=== PATIENT | female | born 1995 | race Caucasian/White ===

== ENCOUNTER 2021-08-11 20:39 | Emergency (ER) | payer MEDICAID ==
[~2021-08-11] VITALS: Ht 152.4 cm; Wt 101.4 kg
[2021-08-11 21:04] VITALS: TEMP 99.3
[2021-08-11 21:30] LABS: BASO # 0.1 (0.0-0.2); BASO % 0.6 % (0.0-2.0); EOS # 0.1 (0.0-0.7); EOS % 0.8 % (0-4.0); GRAN # 7.1 (1.4-6.5); GRAN % 67.6 % (42.2-75.2); HEMATOCRIT 39.7 % (37.0-47.0); LYMPH # 2.7 (1.2-3.4); LYMPH % 25.7 % (20.0-51.0); MEAN CELL VOLUME 87 fl (80.0-100.0); MEAN CORPUSCULAR HEMOGLOBIN 28 pg (27.0-31.0); MEAN CORPUSCULAR HGB CONC 33 g/dl (33.0-37.0); MEAN PLATELET VOLUME 10.3 fl (7.4-10.4); MONO # 0.5 (0.1-0.6); MONO % 4.9 % (1.7-9.3); PLATELET COUNT 346 K/mm3 (130-400); RED BLOOD COUNT 4.58 M/mm3 (4.10-5.30)
[2021-08-11 21:53] LABS: ALBUMIN 3.7 gm/dL (3.5-5.0); BILIRUBIN,TOTAL 0.1 mg/dL (0.2-1.2); CREATININE, serum 0.95 mg/dL (0.57-1.11); POTASSIUM 3.8 mmol/L (3.5-4.5); TOTAL PROTEIN 7.7 gm/dL (6.2-8.1)
[2021-08-12 01:09] LABS: COLLECTION METHOD CLEAN CATCH
[2021-08-12 01:16] LABS: PH 6 (5-8); SQUAMOUS EPITHELIAL 0-2 /hpf; URINE APPEARANCE Clear; URINE BACTERIA None Seen /hpf; URINE BILIRUBIN Negative (NEGATIVE); URINE BLOOD Negative (NEGATIVE); URINE COLOR Colorless; URINE GLUCOSE Negative (NEGATIVE); URINE KETONE Negative (NEGATIVE); URINE LEUKOCYTE ESTERASE Negative (NEGATIVE); URINE NITRATE Negative (NEGATIVE); URINE PROTEIN(semi-quant) Negative (NEGATIVE); URINE RBC None Seen /hpf; URINE UROBILINOGEN Negative (NEGATIVE); URINE WBC 0-2 /hpf
[2021-08-12] MEDS ORDERED: ZOFRAN ODT4 MG PO (01:28)
[2021-08-12] MEDS ORDERED: PEPCID 20MG TAB20 MG PO (01:28)
[2021-08-12] MEDS ORDERED: AMOXICILLIN 8751 TAB PO (10:54)
[2021-08-12] MEDS ORDERED: PRILOSEC 20MG20 MG PO (10:54)
[2021-08-12 11:16] VITALS: BP 110/76; PULSE 56
== END 2021-08-12 11:16 | disposition home or self-care (01) ==
LOC: COL.ER 20:39
PROVIDERS: Emergency Medicine
DX: R10.13 Epigastric pain (principal); R11.2 Nausea with vomiting, unspecified; R10.11 Right upper quadrant pain
CPT/HCPCS: J1885; J2405; J2543; J7030; J7120; Q9967

== ENCOUNTER 2021-08-15 19:50 | Emergency (ER) | payer MEDICAID ==
[~2021-08-15] VITALS: Ht 152.4 cm; Wt 96.8 kg
[~2021-08-15 19:50] MED LIST: AMOXICILLIN 8751 TAB PO; PEPCID 20MG TAB20 MG PO; PRILOSEC 20MG20 MG PO; ZOFRAN ODT4 MG PO
[2021-08-15 21:05] LABS: BASO # 0.1 K/mm3 (0.0-0.2); BASO % 0.7 % (0.0-2.0); EOS # 0.2 K/mm3 (0.0-0.7); EOS % 2.1 % (0-4.0); GRAN # 5.5 K/mm3 (1.4-6.5); GRAN % 53.4 % (42.2-75.2); HEMATOCRIT 43.2 % (37.0-47.0); HEMOGLOBIN 13.6 g/dl (12.5-16.0); LYMPH # 3.8 K/mm3 (1.2-3.4); LYMPH % 37.1 % (20.0-51.0); MEAN CELL VOLUME 90 fl (80.0-100.0); MEAN CORPUSCULAR HEMOGLOBIN 28 pg (27.0-31.0); MEAN CORPUSCULAR HGB CONC 32 g/dl (33.0-37.0); MEAN PLATELET VOLUME 10.4 fl (7.4-10.4); MONO # 0.7 K/mm3 (0.1-0.6); MONO % 6.4 % (1.7-9.3); PLATELET COUNT 337 K/mm3 (130-400); RED BLOOD COUNT 4.81 M/mm3 (4.10-5.30); REDCELL DISTRIBUTION WIDTH-CV 13.1 % (11.5-14.5)
[2021-08-15 21:16] LABS: COLLECTION METHOD CLEAN CATCH
[2021-08-15 21:20] LABS: ALBUMIN 3.9 gm/dL (3.5-5.0); BILIRUBIN,TOTAL 0.2 mg/dL (0.2-1.2); CALCIUM 9.5 mg/dL (8.4-10.2); CREATININE, serum 1.08 mg/dL (0.57-1.11); POTASSIUM 4.2 mmol/L (3.5-4.5); TOTAL PROTEIN 8.3 gm/dL (6.2-8.1)
[2021-08-15 21:22] LABS: MUCOUS Present /lpf; PH 6 (5-8); SQUAMOUS EPITHELIAL 0-2 /hpf; URINE APPEARANCE Clear; URINE BACTERIA None Seen /hpf; URINE BILIRUBIN Negative (NEGATIVE); URINE BLOOD 1+ (NEGATIVE); URINE COLOR Yellow; URINE GLUCOSE Negative (NEGATIVE); URINE KETONE Negative (NEGATIVE); URINE LEUKOCYTE ESTERASE Negative (NEGATIVE); URINE NITRATE Negative (NEGATIVE); URINE PROTEIN(semi-quant) Negative (NEGATIVE); URINE UROBILINOGEN Negative (NEGATIVE)
[2021-08-15 22:20] VITALS: BP 121/78; PULSE 85; TEMP 97.4
== END 2021-08-15 22:25 | disposition home or self-care (01) ==
LOC: COL.ER 19:50
PROVIDERS: Emergency Medicine Emergency Medical Services
DX: R10.13 Epigastric pain (principal); Z32.02 Encounter for pregnancy test, result negative
CPT/HCPCS: J1885; J2405

== ENCOUNTER 2023-02-28 06:40 | Inpatient (IN) | payer MEDICAID ==
[~2023-02-28] VITALS: Ht 152.4 cm; Wt 95.9 kg
[2023-02-28] VITALS (11 sets, daily range): BP systolic 112–142; BP diastolic 60–83; PULSE 67–110; TEMP 97.6–98.2
--- NOTE | 2023-02-28 06:55 | NUR ---
PT AMBULATORY TO LR3 WITH FOB. CHANGED INTO CLEAN GOWN. FHR MONITOR/TOCO APPLIED. PT REPORTING CONTRACTIONS AND LIGHT VAGINAL BLEEDING. PT DENIES DECREASED MOVEMENT OR LEAKING OF FLUID. SVE AT THIS TIME /-2.
--- NOTE | 2023-02-28 07:10 | NUR ---
DR WEAVER ON UNIT. THIS NURSE GIVES HIM VERBAL REPORT. DR WEAVER GIVES ADMISSION ORDERS.
[2023-02-28] MEDS ORDERED: PRENATAL (07:12)
[2023-02-28] MEDS ORDERED: WELLBUTRIN XL150 MG PO (07:13)
[2023-02-28] MEDS ORDERED: PRISTIQ 50 MG T50 MG PO (07:14)
--- NOTE | 2023-02-28 08:00 | NUR ---
Zoey FERNANDEZ POWDER PRESS OPERATOR CALLED FOR EPIDURAL REQUESTS Cristian SALGUERO POWDER PRESS OPERATOR WHO IS IN HOUSE DO EPIDURAL.
[2023-02-28 08:03] LABS: BASO # 0.1 K/mm3 (0.0-0.2); BASO % 0.3 % (0.0-2.0); EOS # 0.1 K/mm3 (0.0-0.7); EOS % 0.5 % (0.0-4.0); GRAN # 12.7 K/mm3 (1.4-6.5); GRAN % 75.6 % (42.2-75.2); LYMPH # 2.8 K/mm3 (1.2-3.4); LYMPH % 16.4 % (20.0-51.0); MEAN CELL VOLUME 75 fl (80.0-100.0); MEAN CORPUSCULAR HEMOGLOBIN 23 pg (27-31); MEAN CORPUSCULAR HGB CONC 31 g/dl (33.0-37.0); MEAN PLATELET VOLUME 10.8 fl (7.4-10.4); MONO % 6.1 % (1.7-9.3); PLATELET COUNT 380 K/mm3 (130-400); RED BLOOD COUNT 4.32 M/mm3 (4.10-5.30); REDCELL DISTRIBUTION WIDTH-CV 16.9 % (11.5-14.5)
[2023-02-28 08:07] LABS: HEMATOCRIT 32.3 % (37.0-47.0)
--- NOTE | 2023-02-28 08:50 | NUR ---
0829- DEEPAK AMOS CALLED A SECOND TIME FOR EPIDURAL PLACEMENT. BETTE "MERARI WILL BE QUICKEST THERE" BETTE NOTIFIED TOD IS STILL IN OPERATING ROOM. 0850- BETTE IN PATIENTS ROOM FOR EPIDURAL PLACEMENT. PATIENT VERY UNCOMFORTABLE AT THIS TIME AND INVOLUNTARILY PUSHING. 0853- SINGLE SHOT ADMINISTERED AT THIS TIME.
--- NOTE | 2023-02-28 09:15 | NUR ---
0845- SVE BY JUSTIN CHARGE NURSE 9. YUE REPORTS FEELING LIKE SHE NEEDS TO PUSH. PATIENT OBSERVED INVOLUNTARILY PUSHING AT THIS TIME. 0853- SINGLE SHOT BY BETTE AT THIS TIME. 0855- PATIENT ASSISTED TO LAY DOWN AND AT BEDSIDE FOR DELIVERY. IV ACCESS PULLED OUT BY PATIENT. NEW IV SITE OBTAINED BY JUSTIN. 0857- SPONTANEOUS DELIVERY OF HEAD AND BODY. 0905- PITOCIN STARTED ORDERED AND PER PROTOCOL AT REQUEST OF . 0908- SPONTANEOUS DELIVERY OF PLACENTA. 0918- CYTOTEC PLACED RECTALLY BY AT THIS TIME.
--- NOTE | 2023-02-28 12:15 | NUR ---
1200- PATIENT ASSISTED INTO WHEEL CHAIR TO GO SEE IN NURSERY. PATIENT ASSISTED TO EGE OF BED AND THEN STANDS AND PIVOTS INTO WHEELCHAIR. 1215- PATIENT LEAVES NURSERY IN WHEELCHAIR WITH SPOUSE TO GO TO ROOM. UPON ATTEMPTING TO STAND, PATIENT REPORTS FEELING DIZZY, PATIENT SITS FOR AN ADITIONAL MINUTE AND THEN STANDS AND LAYS IN BED. PATIENT REQUESTING PAIN MEDICATION, PAIN MEDICATION GIVEN SEE eMAR. PATIENT ALSO REQUESTING A HEATING PACK AT THIS TIME.
--- NOTE | 2023-02-28 15:15 | NUR ---
Called to bedside by TAMI Orellana for pt bleeding. Pt ice pack pad covered and small spot of blood noted on back of pt gown and bed pad. Pt assisted to bathroom, unable to void. Fundus firm at umbilicus with left shift. Panties, pad, and gown changed, new bed pad placed. Pt assisted back to bed. Pt states cramping is bad, "feels like contractions when I came in". Rates pain 7-9/10.
--- NOTE | 2023-02-28 15:45 | NUR ---
1530 - VS done. 1545 - Dr. Aj on unit for delivery, notified of pt concerns, will discuss following delivery. 1610 - Dr. Aj informed of pt cramping pain, uterine shift, and bleeding.
--- NOTE | 2023-02-28 16:20 | NUR ---
Dr. Aj to bedside, evaluates pt and pain control. Bleeding WNL, orders for IV toradol entered.
[2023-03-01] VITALS (13 sets, daily range): BP systolic 102–138; BP diastolic 56–87; PULSE 76–107; TEMP 97.3–98.5
[2023-03-01 07:14] LABS: HEMATOCRIT 19.8 % (37.0-47.0); HEMOGLOBIN 6.2 g/dl (12.5-16.0)
--- NOTE | 2023-03-01 07:20 | NUR ---
Note critical Hgb 6.2. Patient denies any lightheadedness, dizziness, nausea. Denies shortness of breath. Steady gait noted up to BR. Lochia WNL. Fundus firm @ U after patient empties her bladder. Vitals WNL. Encouarged to let this technical publications writer know if she begins to feel any of above symptoms.
--- NOTE | 2023-03-01 10:54 | NUR ---
Patient verbalizes being nauseated and lighteaded, very fatigued.
--- NOTE | 2023-03-01 10:58 | NUR ---
Initial visit attempt; Family resting, Costumed Character Entertainer left card offering congratulations and God's Blessings for the of their daughter and information regarding the availability of Spiritual Care at our hospital.
--- NOTE | 2023-03-01 12:02 | NUR ---
Patien states she is feeling much better. Denies nausea/lightheadedness/dizziness. Note patient ate lunch, regular diet.
[2023-03-01 17:50] LABS: HEMATOCRIT 25.7 % (37.0-47.0); HEMOGLOBIN 8.1 g/dl (12.5-16.0)
--- NOTE | 2023-03-02 08:00 | NUR ---
Rests in bed, alert. Let patient know that blood sugar on baby is 87. Encouraged patient to feed baby. Patient asked for a bottle too feed after.
[2023-03-02 08:59] VITALS: BP 125/70; PULSE 73; TEMP 97.2
[2023-03-02] MEDS ORDERED: IBU600 MG PO (09:48)
--- NOTE | 2023-03-02 10:00 | NUR ---
Rests in bed, alert. Ibuprofen 600 mg, tylenol 1000 mg given as ordered.
--- NOTE | 2023-03-02 13:00 | NUR ---
Discharge instructions to border status given. Verbalzes understanding. 1315 To border status.
== END 2023-03-02 13:15 | disposition home or self-care (01) | DRG 806 ==
LOC: LDRO 06:40 → LDR 07:28 → OB 12:00
PROVIDERS: ADMIT Obstetrics & Gynecology
PROC: 10E0XZZ Delivery of Products of Conception, External Approach (ICD-10-PCS; principal; 2023-02-28)
PROC: 0KQM0ZZ Repair Perineum Muscle, Open Approach (ICD-10-PCS; 2023-02-28)
DX: O62.3 Precipitate labor (principal); D62 Acute posthemorrhagic anemia; Z37.0 Single live birth; O77.0 Labor and delivery complicated by meconium in amniotic fluid; Z3A.38 38 weeks gestation of pregnancy; O70.1 Second degree perineal laceration during delivery; O99.344 Other mental disorders complicating childbirth; F41.9 Anxiety disorder, unspecified; F32.A Depression, unspecified; F43.10 Post-traumatic stress disorder, unspecified; O99.02 Anemia complicating childbirth; O99.214 Obesity complicating childbirth
CPT/HCPCS: J1885; J2590; J2795; J7120; P9016

== ENCOUNTER 2024-01-19 13:50 | Emergency (ER) | payer MEDICAID ==
[~2024-01-19] VITALS: Ht 152.4 cm; Wt 112.7 kg
[~2024-01-19 13:50] MED LIST changes: +IBU600 MG PO; +PRENATAL; +PRISTIQ 50 MG T50 MG PO; +WELLBUTRIN XL150 MG PO
[2024-01-19 14:06] VITALS: TEMP 98.8
[2024-01-19] MEDS ORDERED: AMOXICILLIN 8751 TAB PO (15:13)
[2024-01-19 15:30] VITALS: BP 148/98; PULSE 98
== END 2024-01-19 15:30 | disposition home or self-care (01) ==
LOC: COL.ER 13:50
DX: S61.452A Open bite of left hand, initial encounter (principal); W55.01XA Bitten by cat, initial encounter

== ENCOUNTER 2024-08-16 04:09 | Emergency (ER) | payer MEDICAID ==
[~2024-08-16] VITALS: Ht 152.4 cm; Wt 113.6 kg
[2024-08-16 04:12] VITALS: BP 145/93; PULSE 91; TEMP 97.4
[2024-08-16] MEDS ORDERED: buPROPion XL (24-HR) 150 MG TAB PO ONE (04:30)
[2024-08-16] MEDS ORDERED: LORazepam 0.5 MG TAB PO ONE (04:30)
== END 2024-08-16 04:39 | disposition home or self-care (01) ==
LOC: COL.ER 04:09
DX: F41.9 Anxiety disorder, unspecified (principal); T43.295A Adverse effect of other antidepressants, initial encounter; T50.995A Adverse effect of other drugs, medicaments and biological substances, initial encounter

== ENCOUNTER 2024-09-12 01:13 | Emergency (ER) | payer MEDICAID ==
[~2024-09-12] VITALS: Ht 152.4 cm; Wt 113.6 kg
[2024-09-12] MEDS ORDERED: Albuterol/Ipratropium 3 MG-0.5 MG/3 ML Neb Soln IH ONE (01:15)
[2024-09-12 01:32] LABS: BASO # 0.1 K/mm3 (0.0-0.2); BASO % 0.6 % (0.0-2.0); EOS # 0.4 K/mm3 (0.0-0.7); EOS % 3.2 % (0.0-4.0); GRAN # 7.6 K/mm3 (1.4-6.5); GRAN % 56.2 % (42.2-75.2); HEMATOCRIT 41.7 % (37.0-47.0); HEMOGLOBIN 13.2 g/dl (12.5-16.0); LYMPH # 4.7 K/mm3 (1.2-3.4); LYMPH % 34.7 % (20.0-51.0); MEAN CELL VOLUME 87 fl (80.0-100.0); MEAN CORPUSCULAR HEMOGLOBIN 28 pg (27-31); MEAN CORPUSCULAR HGB CONC 32 g/dl (33.0-37.0); MEAN PLATELET VOLUME 9.9 fl (7.4-10.4); MONO # 0.7 K/mm3 (0.1-0.6); PLATELET COUNT 400 K/mm3 (130-400); RED BLOOD COUNT 4.78 M/mm3 (4.10-5.30); REDCELL DISTRIBUTION WIDTH-CV 13.8 % (11.5-14.5)
[2024-09-12 01:36] VITALS: TEMP 97.8
[2024-09-12 01:45] LABS: ALANINE AMINOTRANSFERASE 17 U/L (0-55); ALBUMIN 3.7 g/dL (3.5-5.0); ALKALINE PHOSPHATASE 111 U/L (40-150); ANION GAP 12 mmol/L (7-16); AST,SGOT 14 U/L (5-34); BILIRUBIN,TOTAL 0.2 mg/dL (0.2-1.2); BLOOD UREA NITROGEN 15 mg/dL (7-19); CALCIUM 9.5 mg/dL (8.4-10.2); CHLORIDE 107 mEq/L (98-107); CREATININE, serum 0.95 mg/dL (0.57-1.11); GLUCOSE 126 mg/dL (70-99); MAGNESIUM 1.9 mg/dL (1.6-2.6); POTASSIUM 3.8 mEq/L (3.5-4.5); SODIUM 141 mEq/L (136-145); TOTAL PROTEIN 7.8 g/dl (6.2-8.1)
[2024-09-12 01:55] LABS: TROPONIN-I < 0.010 ng/mL (0.00-0.033)
[2024-09-12] MEDS ORDERED: LR 1,000 ML IV ONE (02:15)
[2024-09-12 02:37] LABS: COLLECTION METHOD CLEAN CATCH
[2024-09-12 02:45] LABS: PH 6.5 (5.0-8.5); URINE APPEARANCE CLEAR (CLEAR/HAZY); URINE BLOOD NEGATIVE (NEGATIVE); URINE COLOR YELLOW (YELLOW); URINE GLUCOSE NEGATIVE (NEGATIVE); URINE KETONE NEGATIVE (NEGATIVE); URINE NITRATE NEGATIVE (NEGATIVE); URINE PROTEIN(semi-quant) NEGATIVE (NEGATIVE); URINE UROBILINOGEN 0.2 E.U/dL (0.2-1.0)
[2024-09-12 04:40] VITALS: BP 111/77; PULSE 77
== END 2024-09-12 04:40 | disposition home or self-care (01) ==
LOC: COL.ER 01:13
PROVIDERS: Emergency Medicine
DX: R53.81 Other malaise (principal); R53.83 Other fatigue; R42 Dizziness and giddiness; D72.829 Elevated white blood cell count, unspecified
CPT/HCPCS: J7120